=== PATIENT | female | born 1975 | race Caucasian/White ===

== ENCOUNTER → 2017-01-11 | Outpatient (CLI) | payer MEDICAID ==
[~2017-01-11] MED LIST: BLOO-140 MC; DOCU-174 PO; HYDR-3965 PO; METF500T PO; MULT-1203 PO; OMEP20 PO; SULF-168 PO; [UNRECOGNIZED DRUG - CODE]
[2017-01-11 14:09] LABS: ALANINE AMINOTRANSFERASE 48 U/L (12-78); ALBUMIN 3.3 g/dL (3.4-5.0); ANION GAP 5 mmol/L (8-16); ASPARTATE AMINOTRANSFERASE 33 U/L (15-37); BILIRUBIN,TOTAL 0.3 mg/dL (0.1-1.0); CALCIUM, TOTAL 9.4 mg/dL (8.8-10.5); CARBON DIOXIDE 31 mmol/L (22-29); CHLORIDE 100 mmol/L (98-107); CREATININE 0.71 mg/dL (0.60-1.30); GLOMERULAR FILTR. RATE CALC > 60 mL/min (>60); POTASSIUM 4.3 mmol/L (3.5-5.1); SODIUM SERUM 136 mmol/L (136-145); TOTAL PROTEIN, SERUM 8.1 g/dL (6.4-8.2); UREA NITROGEN, BLOOD 9 mg/dL (7-18)
== END | disposition home or self-care (01) ==
LOC: LABPV 11:24
PROVIDERS: ATTEND Internal Medicine Cardiovascular Disease
DX: I11.0 Hypertensive heart disease with heart failure (principal); I10 Essential (primary) hypertension; E11.8 Type 2 diabetes mellitus with unspecified complications

== ENCOUNTER 2023-11-14 14:24 | Emergency (ER) | payer OTHER ==
[~2023-11-14] VITALS: Ht 157.5 cm; Wt 121.8 kg
[~2023-11-14 14:24] MED LIST changes: -DOCU-174 PO; +DOCU100C33 PO; -HYDR-3965 PO; +HYDR-4723 PO
[2023-11-14] MEDS ORDERED: SEMA0.258 PO (14:28)
[2023-11-14] MEDS ORDERED: insulin SQ (14:28)
[2023-11-14] MEDS ORDERED: INSULIN REGULAR, HUMAN 100 UNITS/ML IVP ONE (14:45)
[2023-11-14] MEDS ORDERED: SODIUM CHLORIDE 0.9% 1,000 ML IV ONE (14:45)
[2023-11-14 14:48] LABS: BASOPHILS % (AUTO) 0.4 % (0.0-2.0); EOSINOPHILS % (AUTO) 0.2 % (1.0-6.0); HEMATOCRIT 42.8 % (36-46); HEMOGLOBIN 14.2 g/dL (12.0-16.0); LYMPHOCYTES # (AUTO) 1.6 K/uL (1.0-4.8); LYMPHOCYTES % (AUTO) 14.8 % (22.0-44.0); MEAN CORPUSCULAR HEMOGLOBIN 28.2 pg (26.0-34.0); MEAN CORPUSCULAR HGB CONC 33.3 G/dL (31.0-37.0); MEAN CORPUSCULAR VOLUME 85 fL (80-100); MONOCYTES # (AUTO) 0.5 K/uL (0.1-1.0); MONOCYTES % (AUTO) 4.2 % (2.0-9.0); NEUTROPHILS # (AUTO) 8.9 K/uL (1.8-7.7); NEUTROPHILS % (AUTO) 80.4 % (40.0-70.0); PLATELET COUNT (AUTO) 359 K/uL (150-450); RED BLOOD CELL COUNT(AUTO) 5.06 MIL/uL (4.00-5.20); RED CELL DISTRIBUTION WIDTH 14.1 % (11.5-14.5); WHITE BLOOD COUNT (AUTO) 11.1 K/uL (4.5-11.0)
[2023-11-14 15:07] LABS: ALANINE AMINOTRANSFERASE 24 U/L (12-78); ALBUMIN 3.2 g/dL (3.4-5.0); ALKALINE PHOSPHATASE 130 U/L (46-116); ANION GAP 8 mmol/L (8-16); ASPARTATE AMINOTRANSFERASE 10 U/L (15-37); BILIRUBIN,TOTAL 0.4 mg/dL (0.1-1.0); CALCIUM, TOTAL 9.2 mg/dL (8.8-10.5); CARBON DIOXIDE 29 mmol/L (22-29); CHLORIDE 95 mmol/L (98-107); CREATININE 0.89 mg/dL (0.60-1.30); GLOMERULAR FILTR. RATE CALC > 60 mL/min (>60); POTASSIUM 4.1 mmol/L (3.5-5.1); SODIUM SERUM 132 mmol/L (136-145); TOTAL PROTEIN, SERUM 8.1 g/dL (6.4-8.2); UREA NITROGEN, BLOOD 9 mg/dL (7-18)
[2023-11-14 15:13] LABS: GLUCOSE,RANDOM 429 mg/dL (70-110)
[2023-11-14] MEDS ORDERED: CefTRIAXone 1 GM/DEXTROSE 50 ML IV ONE (16:15)
[2023-11-14 18:33] VITALS: TEMP 98
[2023-11-14] MEDS ORDERED: SULF-261 PO (18:33)
[2023-11-14] MEDS ORDERED: CEPH-558 PO (18:33)
[2023-11-14 18:43] VITALS: BP 152/73; PULSE 93; RESP 16
== END 2023-11-14 18:48 | disposition home or self-care (01) ==
LOC: EMS 14:31
DX: S61.235A Puncture wound without foreign body of left ring finger without damage to nail, initial encounter (principal); E11.65 Type 2 diabetes mellitus with hyperglycemia; Z98.890 Other specified postprocedural states; Z88.5 Allergy status to narcotic agent; X58.XXXA Exposure to other specified factors, initial encounter; Y93.89 Activity, other specified; Y92.89 Other specified places as the place of occurrence of the external cause; Y99.8 Other external cause status
CPT/HCPCS: 99284; 96365; 96361; 96375; 80053; 84702; 85025; 36415; 82962; J0696; J1815; J7030